=== PATIENT | female | born 1980 | race Caucasian/White ===

== ENCOUNTER 2017-07-27 21:18 | Emergency (ER) | payer SELFPAY ==
[~2017-07-27] VITALS: Ht 170.2 cm; Wt 72.7 kg
[2017-07-27] MEDS ORDERED: XANAX0.5 M1 PO (21:37)
[2017-07-27] MEDS ORDERED: ZOLOFT 50MG50 MG PO (21:37)
[2017-07-27] MEDS ORDERED: ZOLOFT 100MG100 MG PO (21:48)
[2017-07-27 23:26] VITALS: BP 92/52
== END 2017-07-27 23:26 | disposition home or self-care (01) ==
LOC: EDSEX 21:18 → ED 21:18
DX: F32.9 Major depressive disorder, single episode, unspecified (principal); R45.851 Suicidal ideations